=== PATIENT | female | born 1985 | race Caucasian/White ===

== ENCOUNTER 2017-07-29 17:57 | Emergency (ER) | payer MEDICAID ==
[~2017-07-29] VITALS: Ht 172.7 cm; Wt 77.1 kg
[~2017-07-29 17:57] MED LIST: ACET-704 PO; AMOX-260 PO; AMOX875T PO; BACI28.34 TP; CLIN300C8 PO; HYDR-79 PO; HYDR-965 PO; HYDR-971 PO; HYDR1TAB12 PO; HYDR25SU18 RC; HYDR30CR61 TP; IBUP400T18 PO; IBUP800T19 PO; ONDA4TAB10 PO; OXYC-323 PO; PENI250T85 PO; PENI500T PO
[2017-07-29 18:30] VITALS: BP 132/69
[2017-07-29] MEDS ORDERED: HYDR-971 PO (19:01)
--- NOTE | 2017-07-29 19:01 | PHYS DOC ---
Past History Past Medical History: No Pertinent History, Asthma Past Surgical History: No Surgical History, Additional Past Surgical Histo: C section 02/20/17 Alcohol Use: None Drug Use: None Adult General Chief Complaint Chief Complaint: DENTAL PROBLEM HPI HPI Patient is a 31 year old female who presents with complaint of dental injury. The patient states that her 1-year-old child accidentally threw her head back while she was holding her, and it her left frontal incisor. Patient states that she had been having trouble with this tooth prior to the injury. Patient states that the tooth was chipped as a result of being hit. Patient states that she has scheduled a dentist appointment for Sunday of this week, however patient states that she is having quite a bit of pain and does not feel that she can go to work today. Patient rates her pain currently is 8 out of 10. Patient denies any other injuries. Patient had no mouth swelling, fever, or any other somatic symptoms. Patient has been taking ibuprofen with minimal relief in symptoms. Review of Systems Review of Systems Constitutional: Denies fever or chills [] Eyes: Denies change in visual acuity, redness, or eye pain [] HENT: Dental injury, denies nasal congestion or sore throat [] Musculoskeletal: Denies back pain or joint pain [] Integument: Denies rash or skin lesions [] Neurologic: Denies headache, focal weakness or sensory changes [] All other systems were reviewed and found to be within normal limits, except as documented in this note. Allergies Allergies Allergies Coded Allergies Type Severity Reaction Last Updated Verified No Known Drug Allergies 04/11/17 No Physical Exam Physical Exam Constitutional: Well developed, well nourished, no acute distress, non-toxic appearance. [] HENT: Normocephalic, atraumatic, bilateral external ears normal, oropharynx moist, tooth #9 fractured distally, no gingival swelling or erythema, no oral exudates, nose normal. [] Eyes: PERRLA, EOMI, conjunctiva normal, no discharge. [] . [] Skin: Warm, dry, no erythema, no rash. [] Back: No tenderness, no CVA tenderness. [] Extremities: No tenderness, no cyanosis, no clubbing, ROM intact, no edema. [] Neurologic: Alert and oriented X 3, normal motor function, normal sensory function, no focal deficits noted. [] Current Patient Data Vital Signs Vital Signs Date Time Temp Pulse Resp B/P (MAP) Pulse Ox O2 Delivery O2 Flow Rate FiO2 07/29/17 18:30 97.5 74 18 98 Room Air Lab Results Not performed EKG EKG Not performed[] Radiology/Procedures Radiology/Procedures Not performed[] Course & Med Decision Making Course & Med Decision Making Pertinent Labs and Imaging studies reviewed. (See chart for details) Patient provided with prescription for Berthold and advised to follow-up with her dentist as scheduled in the next 3 days. Patient was provided with a doctor's note for her shift tonight. Advised return to emergency department for any worsening symptoms. Patient voiced understanding and in agreement with treatment plan. Dragon Disclaimer Dragon Disclaimer This electronic medical record was generated, in whole or in part, using a voice recognition dictation system. Departure Departure: Impression: Primary Impression: Dental injury Disposition: HOME, SELF-CARE Condition: STABLE Referrals: PCP,NO (PCP) Patient Instructions: Tooth Fracture Additional Instructions: Follow-up with your dentist in 3 days as scheduled. Return to the emergency department for any worsening symptoms. Scripts Hydrocodone Bit/Acetaminophen (NORCO 5-325 TABLET) 1 Each Tablet 1-2 TAB PO Q4-6HRS Y for PAIN, #15 TAB Prov: MORRIS MCKEON MD 07/29/17 Problem Qualifiers Primary Impression: Dental injury Encounter type: initial encounter Qualified Codes: S09.93XA - Unspecified injury of face, initial encounter MORRIS MCKEON MD Jul 29, 2017 19:01
== END 2017-07-29 19:07 | disposition home or self-care (01) ==
LOC: ER 17:57
DX: S09.93XA Unspecified injury of face, initial encounter (principal); J45.909 Unspecified asthma, uncomplicated; W51.XXXA Accidental striking against or bumped into by another person, initial encounter; Y93.89 Activity, other specified; Y99.8 Other external cause status; Y92.89 Other specified places as the place of occurrence of the external cause
CPT/HCPCS: 99283

== ENCOUNTER 2017-09-24 20:31 | Emergency (ER) | payer MEDICAID, OTHER ==
[~2017-09-24] VITALS: Ht 172.7 cm; Wt 79.4 kg
[2017-09-24 20:50] VITALS: BP 137/83
[2017-09-24] MEDS ORDERED: BUPIVACAINE MPF 0.25% 10 ML VIAL. ONE (22:17)
[2017-09-24] MEDS ORDERED: BUPIVACAINE PF 0.75% 10 ML VIAL ONE (22:17)
[2017-09-24] MEDS ORDERED: BUPIVAC MPF-EPI 0.5%-1:200000 30 ML VIAL. IJ ONE (22:30)
--- NOTE | 2017-09-24 22:47 | PHYS DOC ---
Past History Past Medical History: No Pertinent History, Asthma Past Surgical History: No Surgical History, Additional Past Surgical Histo: C section 02/20/17 Alcohol Use: None Drug Use: None Adult General Chief Complaint Chief Complaint: DENTAL PROBLEM HPI HPI Patient is a [31-year-old female presents with complaints of dental pain that is chronic in nature. Per patient she or he has a follow-up appointment with dentist tomorrow. She denies any fevers, problems swallowing, pain in other parts of her body Review of Systems Review of Systems Constitutional: Denies fever or chills [] Eyes: Denies change in visual acuity, redness, or eye pain [] HENT: Denies nasal congestion or sore throat, pain at teeth #24 and 25 is when the patient points Respiratory: Denies cough or shortness of breath [] Cardiovascular: No pain GI: Denies abdominal pain, Musculoskeletal: Denies back pain or joint pain [] Integument: Denies rash or skin lesions [] Neurologic: Denies headache, focal weakness or sensory changes [] All other systems were reviewed and found to be within normal limits, except as documented in this note. Current Medications Current Medications Current Medications Medications (Trade) Dose Ordered Sig/Emilio Start Time Stop Time Status Last Admin Dose Admin Bupivacaine HCl (Sensorcaine Pf 0.75%) 10 ml STK-MED ONCE 09/24/17 22:17 09/24/17 22:18 DC Bupivacaine HCl (Sensorcaine-Mpf 0.25%) 10 ml STK-MED ONCE 09/24/17 22:17 09/24/17 22:18 DC Bupivacaine HCl/ Epinephrine Bitart (Sensorcain-Mpf Epi 0.5%-1:[id number]) 1 ml 1X ONCE 09/24/17 22:30 09/24/17 22:31 DC Allergies Allergies Allergies Coded Allergies Type Severity Reaction Last Updated Verified No Known Drug Allergies 04/11/17 No Physical Exam Physical Exam Constitutional: Well developed, well nourished, no acute distress, non-toxic appearance. [] HENT: Normocephalic, atraumatic, bilateral external ears normal, oropharynx moist, no oral exudates, nose normal. Airways patent. No signs of tooth decay at involved area, no signs of abscess, no visible caries Eyes: EOMI, conjunctiva normal, no discharge. [] Neck: Normal range of motion, no tenderness, supple, no stridor. [] Cardiovascular: Normal perfusion Lungs & Thorax: No tachypnea Abdomen: No distention Skin: Warm, dry, no erythema, no rash. [] Back: No murmur range of motion Extremities: No tenderness, ROM intact, no edema. [] Neurologic: Alert and oriented X 3, normal motor function, and relates in the ED with normal gait and without assistance, no focal deficits noted. [] Psychologic: Affect normal, judgement normal, mood normal. [] EKG EKG [] Radiology/Procedures Radiology/Procedures [] Course & Med Decision Making Course & Med Decision Making Pertinent Labs and Imaging studies reviewed. (See chart for details) Patient has dentist to follow-up with. I discussed the options for pain control with the patient who agreed to dental block. While dental block materials were being arrange the patient decided to leave AGAINST MEDICAL ADVICE/eloped without discussing that with either the nursing staff or the medical doctor. [] Dragon Disclaimer Dragon Disclaimer This electronic medical record was generated, in whole or in part, using a voice recognition dictation system. Departure Departure: Impression: Primary Impression: Pain, dental Disposition: AGAINST MEDICAL ADVICE Referrals: PCP,NO (PCP) Patient Instructions: Dental Pain Gonzalo RING MD Sep 24, 2017 22:47
== END 2017-09-24 22:20 | disposition left against medical advice (07) ==
LOC: ER 20:31
DX: K08.89 Other specified disorders of teeth and supporting structures (principal)
CPT/HCPCS: 99281

== ENCOUNTER 2018-01-15 07:48 | Emergency (ER) | payer OTHER ==
[~2018-01-15] VITALS: Ht 172.7 cm; Wt 77.1 kg
[2018-01-15] MEDS ORDERED: KETOROLAC 60 MG/2 ML VIAL. IM ONE (08:40)
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
[2018-01-15] MEDS ORDERED: MELO15TA6 PO (09:04)
[2018-01-15] MEDS ORDERED: CYCL-331 PO (09:04)
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
[2018-01-15 10:31] VITALS: BP 132/93
== END 2018-01-15 09:20 | disposition home or self-care (01) ==
LOC: ER 07:48
DX: S56.812A Strain of other muscles, fascia and tendons at forearm level, left arm, initial encounter (principal); J45.909 Unspecified asthma, uncomplicated; F17.210 Nicotine dependence, cigarettes, uncomplicated; V49.59XA Passenger injured in collision with other motor vehicles in traffic accident, initial encounter; Y93.89 Activity, other specified; Y99.8 Other external cause status; Y92.488 Other paved roadways as the place of occurrence of the external cause
CPT/HCPCS: 73080; 96372; 99284; J1885

== ENCOUNTER 2018-02-14 14:12 | Emergency (ER) | payer OTHER ==
[~2018-02-14] VITALS: Ht 172.7 cm; Wt 82.4 kg
[~2018-02-14 14:12] MED LIST changes: +CYCL-331 PO; +MELO15TA6 PO
--- NOTE | 2018-02-14 14:50 | EKG ---
[address] [address] Test Date: 2018-02-14 Test Time: 14:45:52 Pat Name: HAVEN MARTIN Department: Room: Gender: F Manager Product: : 1985 Requested By: GERMAIN ROMERO Order Number: [id number] Reading MD: Measurements Intervals [place] Rate: 76 P: 59 ND: 138 QRS: 59 QRSD: 94 T: 38 QT: 378 QTc: 430 Interpretive Statements SINUS RHYTHM QRS(T) CONTOUR ABNORMALITY CONSIDER ANTEROLATERAL MYOCARDIAL DAMAGE POSSIBLY ABNORMAL ECG RI6.01 No previous ECG available for comparison
[2018-02-14] MEDS ORDERED: IV NORMAL SALINE 1,000ML 1,000 ML IV SCH (15:00)
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
[2018-02-14 15:17] LABS: BASO # 0.1 x10^3/uL (0.0-0.2); BASO % 1 % (0-3); EOS # 0.4 x10^3/uL (0.0-0.7); EOS % 5 % (0-3); HEMATOCRIT 44.9 % (36.0-47.0); HEMOGLOBIN 15.5 g/dL (12.0-15.5); LYMPH # 3.5 x10^3/uL (1.0-4.8); LYMPH % 41 % (24-48); MEAN CORPUSCULAR HEMOGLOBIN 33 pg (25-35); MEAN CORPUSCULAR HGB CONC 34 g/dL (31-37); MEAN CORPUSCULAR VOLUME 95 fL (79-100); MONO # 0.7 x10^3/uL (0.0-1.1); MONO % 9 % (0-9); NEUT # 3.7 x10^3uL (1.8-7.7); NEUT % 44 % (31-73); PLATELET COUNT 314 x10^3/uL (140-400); RED BLOOD COUNT 4.73 x10^6/uL (3.50-5.40); RED CELL DISTRIBUTION WIDTH 13.3 % (11.5-14.5); WHITE BLOOD COUNT 8.5 x10^3/uL (4.0-11.0)
[2018-02-14 15:25] LABS: CALCIUM 8.6 mg/dL (8.5-10.1); CREATININE 1.1 mg/dL (0.6-1.0); GFR 57.6; POTASSIUM 3.3 mmol/L (3.5-5.1)
--- NOTE | 2018-02-14 15:27 | RAD ---
Chest, PA and Lateral: Technique: PA and lateral views of the chest were obtained. History: Shortness of breath, cough. Comparison: None. Findings: The heart and pulmonary vasculature appear within normal limits. The lungs are clear. The pleural margins are clear. Impression: No acute chest process is seen. Electronically signed by: Landry Waite MD (02/14/2018 3:23 PM) [id number]
[2018-02-14 17:58] LABS: BARBITURATES NEG (NEG); BENZODIAZEPINES NEG (NEG); CANNABINOIDS POS (NEG); COCAINE POS (NEG); METHADONE NEG (NEG); OPIATES NEG (NEG); PHENCYCLIDINE NEG (NEG)
[2018-02-14 18:00] LABS: AMPHETAMINE/METHAMPHETAMINE POS (NEG)
[2018-02-14 18:09] LABS: BACTERIA,URINE FEW /HPF (0-FEW); BILIRUBIN,URINE NEG (NEG); CLARITY,URINE HAZY; COLOR,URINE YELLOW; GLUCOSE,URINE NEG (NEG); NITRITE,URINE NEG (NEG); SQUAMOUS EPITHELIAL CELL,UR MANY /LPF; UROBILINOGEN,URINE 1 mg/dL (0.2 mg/dL)
[2018-02-14 18:13] LABS: U PREG PATIENT NEGATIVE (NEG)
[2018-02-14 18:25] VITALS: BP 127/74
== END 2018-02-14 18:25 | disposition home or self-care (01) ==
LOC: ER 14:12
DX: S80.12XA Contusion of left lower leg, initial encounter (principal); S80.11XA Contusion of right lower leg, initial encounter; F12.90 Cannabis use, unspecified, uncomplicated; R06.02 Shortness of breath; R42 Dizziness and giddiness; F17.210 Nicotine dependence, cigarettes, uncomplicated; J45.909 Unspecified asthma, uncomplicated; X58.XXXA Exposure to other specified factors, initial encounter; Y93.89 Activity, other specified; Y99.8 Other external cause status; Y92.89 Other specified places as the place of occurrence of the external cause
CPT/HCPCS: 36415; 71046; 80048; 80307; 81001; 81025; 85025; 85610; 85730; 93005; 96360; 96361; 99285-25; G0479; J7030

== ENCOUNTER 2018-03-07 16:59 | Emergency (ER) | payer OTHER ==
[~2018-03-07] VITALS: Ht 172.7 cm; Wt 88.5 kg
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
[2018-03-07] MEDS ORDERED: HYDROcodone/APAP 5/325MG 1 TAB TABLET PO ONE (17:30)
[2018-03-07 17:44] VITALS: BP 156/80
[2018-03-07] MEDS ORDERED: HYDR-971 PO (17:46)
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
== END 2018-03-07 17:50 | disposition home or self-care (01) ==
LOC: ER 16:59
DX: S69.91XA Unspecified injury of right wrist, hand and finger(s), initial encounter (principal); S60.221A Contusion of right hand, initial encounter; J45.909 Unspecified asthma, uncomplicated; F31.9 Bipolar disorder, unspecified; F17.210 Nicotine dependence, cigarettes, uncomplicated; W22.8XXA Striking against or struck by other objects, initial encounter; Y93.89 Activity, other specified; Y99.8 Other external cause status; Y92.89 Other specified places as the place of occurrence of the external cause
CPT/HCPCS: 29130; 73130; 99284